=== PATIENT | male | born 2005 | race Two or more races ===

== ENCOUNTER 2024-04-08 18:10 | Inpatient (IN) | payer BC ==
[~2024-04-08] VITALS: Ht 177.8 cm; Wt 82.8 kg
[2024-04-08 19:18] LABS: HEMATOCRIT 40.5 % (41-53); HEMOGLOBIN 13.4 g/dL (13.5-17.5); LYMPHOCYTES # (AUTO) 2.7 K/uL (1.0-4.8); LYMPHOCYTES % (AUTO) 34.6 % (22.0-44.0); MEAN CORPUSCULAR HEMOGLOBIN 30.5 pg (26.0-34.0); MEAN CORPUSCULAR VOLUME 93 fL (80-100); MONOCYTES # (AUTO) 0.6 K/uL (0.1-1.0); MONOCYTES % (AUTO) 8.2 % (2.0-9.0); NEUTROPHILS % (AUTO) 50.2 % (40.0-70.0); PLATELET COUNT (AUTO) 381 K/uL (150-450); RED BLOOD CELL COUNT(AUTO) 4.38 MIL/uL (4.50-5.90); RED CELL DISTRIBUTION WIDTH 13.3 % (11.5-14.5); WHITE BLOOD COUNT (AUTO) 7.9 K/uL (4.5-11.0)
[2024-04-08 19:24] LABS: ANION GAP 7 mmol/L (8-16); CALCIUM, TOTAL 8.7 mg/dL (8.8-10.5); CARBON DIOXIDE 31 mmol/L (22-29); CHLORIDE 102 mmol/L (98-107); CREATININE 0.83 mg/dL (0.60-1.30); GLOMERULAR FILTR. RATE CALC > 60 mL/min (>60); GLUCOSE,RANDOM 106 mg/dL (70-110); POTASSIUM 3.8 mmol/L (3.5-5.1); SODIUM SERUM 140 mmol/L (136-145); UREA NITROGEN, BLOOD 9 mg/dL (7-18)
[2024-04-08 19:33] LABS: ALCOHOL, BLOOD (SERUM) < 3 mg/dL (0-10)
[2024-04-08 20:37] LABS: COVID AG,FIA SOURCE NASAL SWAB
[2024-04-08 20:55] LABS: SARS-COV2 (COVID) ANTIGEN,FIA Negative (Negative)
[2024-04-08 21:15] LABS: AMPHET/METH SCREEN,URINE NEGATIVE (NEGATIVE); BARBITURATE SCREEN, URINE NEGATIVE (NEGATIVE); BENZODIAZEPINES SCREEN,URINE NEGATIVE (NEGATIVE); CANNABINOID SCREEN,URINE NEGATIVE (NEGATIVE); COCAINE SCREEN,URINE NEGATIVE (NEGATIVE); METHADONE SCREEN, URINE NEGATIVE (NEGATIVE); OPIATE SCREEN,URINE NEGATIVE (NEGATIVE); PHENCYCLIDINE SCREEN,URINE NEGATIVE (NEGATIVE)
[2024-04-08 21:18] LABS: ALCOHOL, URINE DRUG SCREEN NEGATIVE (NEGATIVE)
[2024-04-08 22:15] VITALS: O2SAT 98
[2024-04-08] MEDS ORDERED: LORazepam 2 MG TABLET PO PRN (22:30)
[2024-04-08] MEDS ORDERED: HALOPERIDOL 5 MG TABLET PO PRN (22:30)
[2024-04-08] MEDS ORDERED: ZOLPIDEM TARTRATE 10 MG TABLET PO PRN (22:30)
[2024-04-09 02:30] VITALS: BP 132/78; PULSE 92; RESP 18; TEMP 98.2; O2SAT 99
[2024-04-09 08:00] VITALS: BP 157/92; PULSE 89; RESP 18; TEMP 98
[2024-04-09] MEDS ORDERED: MAGNESIUM HYDROXIDE SUSPENSION 30 ML UDCUP PO PRN (09:00)
[2024-04-09] MEDS ORDERED: MAG HYDROX/ALUMINUM HYD/SIMETH ES 30 ML SUSPENSION UDCUP PO PRN (09:00)
[2024-04-09] MEDS ORDERED: GuaiFENesin/D-METHORPHAN [SUGAR-FREE] 200-20MG/10 ML SYRUP UDCUP PO PRN (09:00)
[2024-04-09] MEDS ORDERED: ACETAMINOPHEN 325 MG TABLET PO PRN (09:00)
[2024-04-09] MEDS ORDERED: PETROLATUM,WHITE 28 GM JELLY TP PRN (09:00)
[2024-04-09] MEDS ORDERED: ONDANSETRON 4 MG TABLET PO PRN (09:00)
[2024-04-09] MEDS ORDERED: IBUPROFEN 400 MG TABLET PO PRN (09:00)
[2024-04-09] MEDS ORDERED: CloNIDine HCL 0.1 MG TABLET PO PRN (09:00)
[2024-04-09] MEDS ORDERED: ALBUTEROL SULFATE HFA 90 MCG/PUFF 8 GM INHALER IH PRN (09:00)
[2024-04-09] MEDS ORDERED: LOPERAMIDE HCL 2 MG CAPSULE PO PRN (09:00)
[2024-04-09] MEDS ORDERED: DOCUSATE SODIUM 100 MG CAPSULE PO PRN (09:00)
[2024-04-09] MEDS ORDERED: NICOTINE 14 MG/24 HOUR PATCH TD PRN (09:00)
[2024-04-09] MEDS ORDERED: CLOZ100T11 PO (13:26)
[2024-04-09] MEDS ORDERED: PALI3TAB14 PO (13:26)
[2024-04-09] MEDS ORDERED: CLOZ50TA9 PO (13:26)
[2024-04-09] MEDS ORDERED: TRAZ-252 PO (13:26)
[2024-04-09] MEDS ORDERED: METH-521 PO (13:35)
[2024-04-09] MEDS ORDERED: BUPR-562 PO (13:35)
[2024-04-09] MEDS: BuPROPion HCL XL 150 MG ER TABLET PO SCH (14:38)
[2024-04-09] MEDS: METHYLPHENIDATE HCL 10 MG TABLET PO SCH (16:01)
[2024-04-09 20:17] VITALS: BP 132/72; PULSE 82; RESP 18; TEMP 98; O2SAT 98
[2024-04-09] MEDS ORDERED: CloZAPine 25 MG TABLET PO SCH (21:00)
[2024-04-09] MEDS: TraZODone HCL 50 MG TABLET PO SCH (21:27)
[2024-04-09] MEDS: CloZAPine 100 MG TABLET PO SCH (21:28)
[2024-04-09] MEDS: PALIPERIDONE 3 MG ER TABLET PO SCH (21:28)
[2024-04-10 08:30] VITALS: BP 132/91; PULSE 98; RESP 16; TEMP 97.9; O2SAT 98
[2024-04-10 08:31] LABS: HEMOGLOBIN A1C 5.4 % (3.8-5.6)
[2024-04-10 08:34] LABS: CHOL/HDL RATIO 3.4 (4.2-7.3); THYROID STIMULATING HORMONE 1.64 uIU/mL (0.36-3.74)
[2024-04-10 20:53] VITALS: BP 138/75; PULSE 96; RESP 19; TEMP 96.8; O2SAT 99
[2024-04-11 08:33] VITALS: BP 136/81; PULSE 102; RESP 14; TEMP 97.3; O2SAT 97
[2024-04-11 21:12] VITALS: BP 110/74; PULSE 108; RESP 18; TEMP 98.5; O2SAT 98
[2024-04-12 10:40] VITALS: BP 138/78; PULSE 71; RESP 17; TEMP 98.9; O2SAT 100
[2024-04-12] MEDS ORDERED: PALI3TAB PO (11:22)
[2024-04-12] MEDS ORDERED: TRAZ-252 PO (11:22)
[2024-04-12] MEDS ORDERED: METH-530 PO (11:22)
[2024-04-12] MEDS ORDERED: CLOZ100T61 PO (11:22)
[2024-04-12] MEDS ORDERED: BUPR-514 PO (11:22)
[2024-04-12 21:46] VITALS: BP 135/69; PULSE 105; RESP 18; TEMP 98.2; O2SAT 100
[2024-04-13 09:21] VITALS: BP 140/76; PULSE 85; RESP 17; TEMP 97.7; O2SAT 100
[2024-04-23] MEDS ORDERED: PALIPERIDONE PALMITATE 156 MG/ML SYRINGE IM SCH (09:00)
== END 2024-04-13 10:25 | disposition home or self-care (01) | DRG 885 ==
LOC: EMS 18:10 → 3EI 04-09 00:58
PROVIDERS: ADMIT Psychiatry & Neurology Psychiatry; ATTEND Psychiatry & Neurology Psychiatry
PROC: GZHZZZZ Group Psychotherapy (ICD-10-PCS; principal; 2024-04-10)
PROC: GZ52ZZZ Individual Psychotherapy, Cognitive (ICD-10-PCS; 2024-04-10)
DX: F25.0 Schizoaffective disorder, bipolar type (principal); F32.2 Major depressive disorder, single episode, severe without psychotic features; F90.0 Attention-deficit hyperactivity disorder, predominantly inattentive type; D64.9 Anemia, unspecified; R03.0 Elevated blood-pressure reading, without diagnosis of hypertension; F98.8 Other specified behavioral and emotional disorders with onset usually occurring in childhood and adolescence; Z20.822 Contact with and (suspected) exposure to COVID-19; Z79.899 Other long term (current) drug therapy; Z88.0 Allergy status to penicillin
CPT/HCPCS: 80048; 80061; 80307; 83036; 84443; 85025; 99285; G0480